=== PATIENT | female | born 1960 | race Caucasian/White ===

== ENCOUNTER → 2021-06-06 | Outpatient (CLI) | payer OTHER ==
[2021-06-06 10:19] LABS: BASOPHILS ABSOLUTE AUTO 0.03 K/mm3 (0.00-0.23); BASOPHILS PERCENT AUTO 1 % (0-2); EOSINOPHILS ABSOLUTE AUTO 0.23 K/mm3 (0.00-0.68); EOSINOPHILS PERCENT AUTO 5 % (0-6); Hemoglobin 15.6 g/dL (11.5-16.0); IMMATURE GRAN ABSOLUTE AUTO 0.01 K/mm3 (0.00-0.10); IMMATURE GRAN PERCENT AUTO 0 % (0-1); LYMPHOCYTES ABSOLUTE AUTO 2.09 K/mm3 (0.84-5.20); LYMPHOCYTES PERCENT AUTO 45 % (21-46); MONOCYTES ABSOLUTE AUTO 0.33 K/mm3 (0.16-1.47); MONOCYTES PERCENT AUTO 7 % (4-13); Mean Corpuscular HGB 30.5 pg (26.0-34.0); Mean Corpuscular HGB Conc 33.9 g/dL (31.5-36.5); Mean Corpuscular Volume 90 fL (80-100); NEUTROPHILS PERCENT AUTO 43 % (41-73); Platelet Count 246 K/mm3 (150-400); RDW Coefficient Variation 12.2 % (11.7-14.2); RDW Standard Deviation 39.8 fL (35.1-46.3); Red Blood Cell Count 5.11 M/mm3 (3.80-5.20); White Blood Cell Count 4.69 K/mm3 (4.00-11.30)
[2021-06-06 10:30] LABS: Albumin/Globulin Ratio 1.1 (0.8-1.8); Bilirubin, Total 0.9 mg/dL (0.1-1.0); Bun/Creatinine Ratio 16.5 (12.0-20.0); Creatinine, Blood 1.03 mg/dL (0.40-1.00); Globulin, Blood 3.7 g/dL (2.2-4.0); Potassium, Blood 4.1 mmol/L (3.5-5.5); Total Protein, Blood 7.7 g/dL (6.4-8.2)
== END | disposition home or self-care (01) ==
LOC: LAB SHORT 10:15 → LAB 10:15
PROVIDERS: Physician Assistant Medical
DX: R10.13 Epigastric pain (principal)
CPT/HCPCS: 80053; 85025

== ENCOUNTER → 2022-02-16 | Outpatient (CLI) | payer OTHER | END | disposition home or self-care (01) | LOC: LAB SHORT 08:38 → LAB 08:38 | DX: N95.1 Menopausal and female climacteric states (principal); K21.9 Gastro-esophageal reflux disease without esophagitis; B96.81 Helicobacter pylori [H. pylori] as the cause of diseases classified elsewhere; K80.80 Other cholelithiasis without obstruction; E03.9 Hypothyroidism, unspecified; F41.1 Generalized anxiety disorder; F33.1 Major depressive disorder, recurrent, moderate; E78.2 Mixed hyperlipidemia; E53.8 Deficiency of other specified B group vitamins; E55.9 Vitamin D deficiency, unspecified; E27.49 Other adrenocortical insufficiency; R87.1 Abnormal level of hormones in specimens from female genital organs | CPT/HCPCS: 87338 ==

== ENCOUNTER 2022-04-25 11:44 | Emergency (ER) | payer OTHER ==
[~2022-04-25] VITALS: Ht 165.1 cm; Wt 86.2 kg
[~2022-04-25 11:44] MED LIST: ADRENAL CORTEX; ATOR10 PO; BUPR150ER PO; DHEA; ESCI10 PO; MULVITA; OMEP20ER PO; PROP10 PO; TRAZ100 PO; VITAMIN D310 MC4; Vitamin B Comple1 EA; Vitamin C100 M1
[2022-04-25 13:02] LABS: BASOPHILS ABSOLUTE AUTO 0.03 K/mm3 (0.00-0.23); BASOPHILS PERCENT AUTO 0 % (0-2); EOSINOPHILS PERCENT AUTO 1 % (0-6); Hematocrit 44.1 % (33.0-51.0); Hemoglobin 14.9 g/dL (11.5-16.0); IMMATURE GRAN ABSOLUTE AUTO 0.01 K/mm3 (0.00-0.10); IMMATURE GRAN PERCENT AUTO 0 % (0-1); LYMPHOCYTES PERCENT AUTO 24 % (21-46); MONOCYTES ABSOLUTE AUTO 0.82 K/mm3 (0.16-1.47); MONOCYTES PERCENT AUTO 9 % (4-13); Mean Corpuscular HGB Conc 33.8 g/dL (31.5-36.5); Mean Corpuscular Volume 92 fL (80-100); Mean Platelet Volume 9.3 fL (9.1-12.4); NEUTROPHILS ABSOLUTE AUTO 5.68 K/mm3 (1.96-9.15); NEUTROPHILS PERCENT AUTO 65 % (41-73); Platelet Count 221 K/mm3 (150-400); RDW Coefficient Variation 12.7 % (11.7-14.2); RDW Standard Deviation 43.1 fL (35.1-46.3); Red Blood Cell Count 4.81 M/mm3 (3.80-5.20); White Blood Cell Count 8.74 K/mm3 (4.00-11.30)
[2022-04-25 13:20] LABS: Albumin, Blood 3.5 g/dL (3.4-5.0); Albumin/Globulin Ratio 0.8 (0.8-1.8); Bun/Creatinine Ratio 13.2 (12.0-20.0); Calcium, Blood 9.1 mg/dL (8.5-10.1); Creatinine, Blood 0.76 mg/dL (0.40-1.00); Globulin, Blood 4.2 g/dL (2.2-4.0); Potassium, Blood 3.9 mmol/L (3.5-5.5); Total Protein, Blood 7.7 g/dL (6.4-8.2)
[2022-04-25] MEDS ORDERED: TRAZ50 (15:09)
[2022-04-25] MEDS ORDERED: CLIMARA1 EACH TOP (15:11)
[2022-04-25 15:20] LABS: Source, Urine Clean Catch
[2022-04-25 15:22] LABS: Appearance, Urine Clear (Clear); Bilirubin, Urine Neg (Neg); Blood, Urine 1+ (Neg); Color, Urine Yellow (P-Yellow); Glucose Qualitative, Urine Neg (Neg); Ketones, Urine 1+ (Neg); Leukocyte Esterase, Urine Neg (Neg); Nitrite, Urine Neg (Neg); Protein, Urine Neg (Neg); Urobilinogen, Urine NORM (Normal)
[2022-04-25] MEDS ORDERED: ONDA4ODT MM (15:32)
[2022-04-25] MEDS ORDERED: HYDR1TAB94 PO (15:32)
[2022-04-25 15:52] LABS: Bacteria Mod /hpf; Calcium Oxalate Crystals Rare /hpf; Red Blood Cells, Urine 0-2 /hpf (0-2); Squamous Epithelial Cells Few /hpf (Few); White Blood Cells, Urine 0-2 /hpf (0-5)
== END 2022-04-25 15:58 | disposition home or self-care (01) ==
LOC: ER 11:44
PROVIDERS: Physician Assistant
DX: K80.20 Calculus of gallbladder without cholecystitis without obstruction (principal); Z79.899 Other long term (current) drug therapy; Z90.710 Acquired absence of both cervix and uterus
CPT/HCPCS: 36415; 76705; 80053; 81001; 83690; 85025; 87086; 99284-25

== ENCOUNTER 2022-06-11 07:42 | Day surgery (SDC) | payer OTHER ==
[~2022-06-11 07:42] MED LIST changes: +CLIMARA1 EACH TOP; +HYDR1TAB94 PO; +ONDA4ODT MM; +TRAZ50
--- NOTE | 2022-06-11 08:49 | NUR ---
Ambulatory in Day Surgery. Patient confirms NPO status and agrees with scheduled surgery. Patient reports completing Chlorhexadine shower X2 prior to admission to hospital. Lungs clear T/O to Auscultation. Pre-Op teaching done. Pt verbalizes understanding. Patient States Post-Procedure ride home has been arranged.
--- NOTE | 2022-06-11 10:35 | NUR ---
SITTING UP IN BED, TOLERATING SIPS OF WATER AND CRACKERS. DENIES NAUSEA. C/O MID UPPER ABDOMINAL PAIN 6/10, DESCRIPES SHARP. INCISION SITES X4 TO ABD CLEAN, DRY AND INTACT WITH SURGICAL GLUE, NO DRESSING. PLAN FOR ORAL ANALGESIC PER ORDER.
--- NOTE | 2022-06-11 11:17 | NUR ---
ICE TO ABDOMEN PER PATIENT REQUEST, FOR PAIN MANAGMENT. PATIENT TOLERATING PO FLUIDS AND CRACKERS. DENIES NAUSEA. STATES HER PAIN HAS DECREASED TO 4/10 AND REQUESTS ADDITIONAL PAIN PILL WHEN ABLE.
--- NOTE | 2022-06-11 11:37 | NUR ---
PATIENT REPORTS PAIN HAS DECREASED TO TOLERABLE LEVEL 3/10 AND STATES SHE IS READY TO DISCHARGE HOME. VSS. GAIT STEADY. NO CHANGE TO SURGICAL INCISION SITES TO ABD X4. NO VISIBLE DRAINAGE, SWELLING, ERYTHEMA OR BRUISING NOTED.
--- NOTE | 2022-06-12 12:43 | NUR ---
06/12/22 1243 Maddi Ch VERIFICATIONS: EDIT CHART.
== END 2022-06-11 11:46 | disposition home or self-care (01) ==
LOC: ORSCMMR 07:42 → ORD 08:30 → ORSCMMR 11:46 → ORD 07-09 08:30
PROVIDERS: Surgery
PROC: 0FT44ZZ Resection of Gallbladder, Percutaneous Endoscopic Approach (ICD-10-PCS; principal; 2022-06-11 08:30)
PROC: BF031ZZ Plain Radiography of Gallbladder and Bile Ducts using Low Osmolar Contrast (ICD-10-PCS; principal; 2022-06-11 08:30)
DX: K80.10 Calculus of gallbladder with chronic cholecystitis without obstruction (principal); E03.9 Hypothyroidism, unspecified; E27.40 Unspecified adrenocortical insufficiency; K21.9 Gastro-esophageal reflux disease without esophagitis; F32.A Depression, unspecified; F41.9 Anxiety disorder, unspecified; Z79.899 Other long term (current) drug therapy
CPT/HCPCS: 74300; 88304; A9270; C1729; J0690; J1100; J1885; J2250; J2370; J2405; J2704; J2795; J3010; J7120

== ENCOUNTER → 2022-07-09 | Outpatient (CLI) | payer OTHER ==
[~2022-07-09] MED LIST changes: +LEVSOD25 PO
[2022-07-10 10:39] LABS: Hematocrit 42.6 % (33.0-51.0); Mean Corpuscular HGB 31.1 pg (26.0-34.0); Mean Corpuscular HGB Conc 32.9 g/dL (31.5-36.5); Mean Corpuscular Volume 95 fL (80-100); Mean Platelet Volume 10.5 fL (9.1-12.4); Platelet Count 262 K/mm3 (150-400); RDW Coefficient Variation 12.7 % (11.7-14.2); White Blood Cell Count 6.56 K/mm3 (4.00-11.30)
== END ==
LOC: LAB SHORT 14:31 → LAB 14:31
PROVIDERS: Nurse Practitioner
DX: E03.9 Hypothyroidism, unspecified (principal); E55.9 Vitamin D deficiency, unspecified; N95.1 Menopausal and female climacteric states; R87.1 Abnormal level of hormones in specimens from female genital organs; E53.8 Deficiency of other specified B group vitamins; E27.49 Other adrenocortical insufficiency; E61.1 Iron deficiency
CPT/HCPCS: 85027

== ENCOUNTER → 2024-11-04 | Outpatient (CLI) | payer OTHER | END | disposition home or self-care (01) | LOC: LAB SHORT 19:00 → LAB 19:00 | DX: L02.12 Furuncle of neck (principal) | CPT/HCPCS: 87070; 87075; 87077; 87147; 87186; 87205 ==